=== PATIENT | male | born 1980 ===

== ENCOUNTER 2017-08-14 22:36 | Emergency (ER) | payer SELFPAY ==
[2017-08-14 22:46] VITALS: BMI 32.9
[2017-08-14 22:47] VITALS: BP 120/79; PULSE 79; RESP 18; TEMP 98.1; O2SAT 95
--- NOTE | 2017-08-14 23:10 | ED PDOC ---
Arrival/HPI - General Chief Complaint: Abnormal Skin Integrity Time Seen by Provider: 08/14/17 22:51 Historian: Patient - History of Present Illness Narrative History of Present Illness (Text): 08/14/17 23:07 Patient reports 2 day history of diffuse erythematous pruritic rash. Otherwise patient reports (-) throat swelling, (-) tongue / lip swelling, (-) dyspnea, (- ) cough, (-) wheezing, (-) abdominal pain, (-) nausea (-) vomiting. There has been no exposure to known allergens. Reports taking no medications for his symptoms. The patient has no history of allergic reactions. Past Medical History - Provider Review Nursing Documentation Reviewed: Yes - Infectious Disease Hx of Infectious Diseases: None - Cardiac Hx Cardiac Disorders: No - Pulmonary Hx Respiratory Disorders: No - Neurological Hx Seizures: Yes (febrile seizures as a child) - HEENT Hx HEENT Disorder: No - Renal Hx Renal Disorder: No - Endocrine/Metabolic Hx Endocrine Disorders: No - Hematological/Oncological Hx Blood Disorders: No - Integumentary Hx Dermatological Disorder: No - Musculoskeletal/Rheumatological Hx Musculoskeletal Disorders: No - Gastrointestinal Hx Gastrointestinal Disorders: No - Genitourinary/Gynecological Hx Genitourinary Disorders: No - Psychiatric Hx Psychophysiologic Disorder: No Hx Substance Use: No - Surgical History Other/Comment: foot debridement - Anesthesia Hx Anesthesia: Yes Hx Anesthesia Reactions: No Hx Malignant Hyperthermia: No Family/Social History - Physician Review Nursing Documentation Reviewed: Yes Family/Social History: No Known Family HX Smoking Status: Heavy Smoker > 10 Cigarettes Daily Hx Alcohol Use: Yes Frequency of alcohol use: Socially Hx Substance Use: No Allergies/Home Meds Allergies/Adverse Reactions: Allergies Penicillins Allergy (Verified 08/14/17 22:53) ANAPHYLAXIS Review of Systems - Review of Systems Constitutional: Normal. absent: Fatigue, Weight Change, Fevers ENT: Normal. absent: Hearing Changes, Sore Throat, Rhinorrhea Respiratory: Normal. absent: SOB, Cough, Sputum Musculoskeletal: Normal. absent: Arthralgias, Back Pain, Neck Pain Skin: Normal, Rash. absent: Pruritis, Skin Lesions Physical Exam - Physical Exam Narrative Physical Exam (Text): 08/14/17 23:11 GENERAL APPEARANCE: Patient is awake, alert, oriented x 3, in no acute distress. SKIN: (+) urticarial rash to the trunk and b/l UE, (-) other rash / lesions. Otherwise (-) excoriations, (-) drainage, (-) crusting of lesions is present. HENT: (-) conjunctival injection, (-) chemosis. Oropharynx: clear (-) tongue or lip swelling, (-) tonsillar exudates, (-) erythema. Airway: patent (-) stridor, (-) hoarseness. Mucous membranes moist. Nares: Patent (-) rhinorrhea. NECK: (-) lymphadenopathy, (-) tenderness. CARDIOVASCULAR: Normal rate and rhythm. (-) murmur, (-) gallop. CHEST: (-) rales, (-) wheezing, (-) dyspnea, (-) stridor. Breath sounds equal bilaterally. ABDOMEN: Soft. (-) tenderness, (-) distention, (-) HSM. NEURO: Mental status: Patient is alert, oriented, and with normal strength and tone. Vital Signs Temp Pulse Resp BP Pulse Ox 08/14/17 22:37 98.1 F 79 18 120/79 95 Medical Decision Making ED Course and Treatment: 08/14/17 23:10 37 yo M presents c/o 2 day history of diffuse erythematous pruritic rash. Plan : - Prednisone po - Benadryl po - Pepcid po On reevaluation, the patient is laying in bed comfortably in no acute distress, breathing easy and unlabored, and full sentences. Patient notified of likely diagnosis of urticaria. Instructed to follow up with the clinic in 1-2 days without fail. Advised to take medication as prescribed. Return to the emergency room at any time for any new or worsening symptoms. Patient states he fully agrees with and understands discharge instructions. States that he agrees with the plan and disposition. Verbalized and repeated discharge instructions and plan. I have given the patient opportunity to ask any additional questions. - Medication Orders Current Medication Orders: Discontinued Medications Diphenhydramine HCl (Benadryl) 50 mg PO STAT STA Stop: 08/14/17 23:05 Last Admin: 08/14/17 23:18 Dose: 50 mg Famotidine (Pepcid) 40 mg PO STAT STA Stop: 08/14/17 23:05 Last Admin: 08/14/17 23:16 Dose: 40 mg Prednisone (Prednisone Tab) 60 mg PO STAT STA Stop: 08/14/17 23:05 Last Admin: 08/14/17 23:18 Dose: 60 mg - PA / HOST/HOSTESS / Resident Statement MD/DO has reviewed & agrees with the documentation as recorded. Disposition/Present on Arrival - Present on Arrival Any Indicators Present on Arrival: No History of DVT/PE: No History of Uncontrolled Diabetes: No Urinary Catheter: No History of Decub. Ulcer: No History Surgical Site Infection Following: None - Disposition Have Diagnosis and Disposition been Completed?: Yes Diagnosis: Urticaria Disposition: HOME/ ROUTINE Disposition Time: 23:08 Patient Plan: Discharge Condition: STABLE Discharge Instructions (ExitCare): Urticaria (ED) Print Language: YAKUT Additional Instructions: Thank you for letting us take care of you today. You were treated for urticaria. The emergency medical care you received today was directed at your acute symptoms. If you were prescribed any medication, please fill it and take as directed. It may take several days for your symptoms to resolve. Return to the Emergency Department if your symptoms worsen, do not improve, or if you have any other problems. Please contact your doctor in 2 days for re-evaluation and follow up / or call one of the physicians/clinics you have been referred to that are listed on the Patient Visit Information form that is included in your discharge packet. Bring any paperwork you were given at discharge with you along with any medications you are taking to your follow up visit. Our treatment cannot replace ongoing medical care by a primary care provider (PCP) outside of the emergency department. Thank you for allowing the [facility] team to be part of your care today. Prescriptions: DiphenhydrAMINE [Benadryl] 25 mg PO TID #20 cap Famotidine [Pepcid] 40 mg PO DAILY #20 tablet predniSONE [predniSONE Tab] 40 mg PO DAILY #8 tab Ref[place] [facility] [place] [facility] [place] - Follow up with primary Forms: [employer] (Irish), WORK NOTE
== END 2017-08-14 23:41 | disposition home or self-care (01) ==
LOC: ED 22:36
DX: L50.9 Urticaria, unspecified (principal)